=== PATIENT | male | born 1970 | race Caucasian/White ===

== ENCOUNTER 2020-02-21 07:09 | Emergency (ER) | payer MEDICAID, OTHER ==
[2020-02-21] MEDS ORDERED: Sodium Chloride 0.9% 1,000 ML IV SCH (07:15)
[2020-02-21] MEDS ORDERED: HYDROmorphone 0.5 MG/0.5 ML Syringe IVPUSH ONE (07:16)
[2020-02-21] MEDS ORDERED: Metoclopramide 10 MG/2 ML SDV IVPUSH ONE (07:16)
--- NOTE | 2020-02-21 07:22 | EDM.PDOC ---
ED HPI GENERAL MEDICAL PROBLEM - General Chief Complaint: Neuro Symptoms/Deficits Stated Complaint: [facility] Time Seen by Provider: 02/21/20 07:15 Source of Information: Reports: Patient, EMS History Limitations: Reports: No Limitations - History of Present Illness INITIAL COMMENTS - FREE TEXT/NARRATIVE: 49-year-old male brought to the ED per [facility] ambulance. They got a call to respond to an unresponsive man whom CPR was being done on by bystanders. Apparently he is staying in a hotel room. Paramedics indicate that he was unresponsive and blue in color. They were unable to establish an IV and therefore an IO device was placed in his right anterior tibia. Patient is a known type 2 diabetic controlled with oral meds and diet and they were unable to get initial blood sugar. He was given a third of an amp of D50 when the blood sugar recording came back at greater than 250. Subsequent blood sugar was 360. Therefore the full amp was not administered and he did not seem to respond to it either. There is some suggestion that he might of ODD on a narcotic and he was therefore given Narcan 2 mg IV and did respond to this by awakening. Apparently has had no nausea or vomiting. Patient is alert and oriented at the time of arrival in the ED complaining of severe pain at the site of the IO device in his right anterior tibia. It was removed. He states he got up around 0530 hrs. this morning and took his usual doses of medications. After this he does not remember anything else. There was no emesis on scene. No evidence that he bit his tongue or lost control of his bowel or bladder. He had a similar type episode about a month ago in [place]. Apparently he received 2 doses of Narcan at that time and responded to medication. Past records reveal that he has a history of opioid abuse but he denies using any opiates at this time. He denies any chest pain at this time. Denies any fever chills nausea or vomiting. Patient reports only change in medication last month was an increased dose of his labetalol for hypertension Onset: Today, Unknown/Unsure (For 530 as he states he got up for the day at that time.) Onset Date: 02/21/20 Duration: Minutes: Location: Reports: Generalized (Is found unresponsive blue in color with a pulse and CPR was stopped by paramedics.) Quality: Reports: Other (Patient's only pain is in his right anterior tib-fib at the site of intra-osseous device) Severity: Moderate Improves with: Reports: Other (Patient's cognition returned after Narcan 2 mg IV ) Worsens with: Reports: None Context: Reports: Other (Found unresponsive on the floor of a hotel room.). Denies: Activity, Exercise, Lifting, Sick Contact, Trauma Associated Symptoms: Reports: Confusion, Diaphoresis (He has no idea what happened to him after he took his meds at 0530 hrs. this morning.), Malaise, Weakness. Denies: Chest Pain, Cough, cough w sputum, Fever/Chills, Headaches, Loss of Appetite, Nausea/Vomiting, Rash, Seizure, Shortness of Breath, Syncope Treatments BMET: Reports: Other (see below) (Paramedics administered a third of an amp of D50 glucose. He also then received Narcan 2 mg IV.) Right Leg Pain Score (Numeric/FACES): 8 - Related Data Allergies Allergy/AdvReac Type Severity Reaction Status Date / Time codeine Allergy Rash Verified 02/21/20 07:50 Home Meds: Home Meds Fluticasone/Salmeterol [Advair 500-50] 1 puff INH BID #1 diskus 09/05/18 [Rx] amLODIPine Besylate [Amlodipine Besylate] 10 mg PO DAILY #30 tablet 09/05/18 [Rx ] metFORMIN HCl [Metformin HCl] 1,000 mg PO BID 12/18/18 [History] Labetalol HCl [Labetalol] 300 mg PO ASDIRECTED #90 tablet 02/21/20 [Rx] Labetalol HCl [Labetalol] 300 mg PO QAM 02/21/20 [History] Labetalol [Normodyne] 600 mg PO BEDTIME 02/21/20 [History] Multivitamin [Multiple Vitamins] 1 tab PO DAILY 02/21/20 [History] amLODIPine [Norvasc] 10 mg PO DAILY #30 tab 02/21/20 [Rx] lisinopriL [Lisinopril] 40 mg PO DAILY 02/21/20 [History] lisinopriL [Lisinopril] 40 mg PO DAILY #30 tablet 02/21/20 [Rx] metFORMIN [Glucophage] 1,000 mg PO BIDMEALS #60 tab 05/30/20 [Rx] Past Medical History HEENT History: Reports: None Cardiovascular History: Reports: Hypertension Respiratory History: Reports: None Gastrointestinal History: Reports: None Genitourinary History: Reports: Renal Calculus Musculoskeletal History: Reports: None Neurological History: Reports: None Psychiatric History: Reports: None Endocrine/Metabolic History: Reports: Other (See Below) Other Endocrine/Metabolic History: pre-diabetic Insulin Pump Model and Elementary Reading Tutor: None Hematologic History: Reports: None Immunologic History: Reports: None Oncologic (Cancer) History: Reports: None Dermatologic History: Reports: None - Infectious Disease History Infectious Disease History: Reports: None - Past Surgical History Head Surgeries/Procedures: Reports: None Other Cardiovascular Surgeries/Procedures: From previous hx Social & Family History - Family History Family Medical History: Unobtainable - Caffeine Use Caffeine Use: Reports: Tea - Living Situation & Occupation Living situation: Reports: Occupation: Unemployed ED ROS GENERAL - Review of Systems Review Of Systems: See Below Constitutional: Reports: Malaise. Denies: Fever, Chills, Decreased Appetite HEENT: Reports: No Symptoms Respiratory: Reports: No Symptoms Cardiovascular: Reports: Blood Pressure Problem Endocrine: Reports: Fatigue, High Glucose ( apparently not all that compliant with meds. ) GI/Abdominal: Reports: No Symptoms : Reports: Frequency Musculoskeletal: Reports: Back Pain, Other ( currently complaining of Rt anterior tibia pain at site of IO device. ) Skin: Reports: No Symptoms Neurological: Reports: Other (recurrent bouts of unresponsiveness felt to be related to opiod overdoses as he responds to Narcan. ) Psychiatric: Reports: Other (substance abuse. ) Hematologic/Lymphatic: Reports: No Symptoms Immunologic: Reports: No Symptoms ED EXAM, NEURO - Physical Exam Exam: See Below Exam Limited By: No Limitations General Appearance: Alert, Moderate Distress (in severe pain from IO devise Rt anterior proximal tibia. Device was removed as a peripheral IV has been established. ), Other (Temperature is 36.6. Heart rate was 95 and sinus respiratory of 16 with O2 sats of 97% on room air. BP initially was 138/99 came down to 119/81.) Eye Exam: Bilateral Eye: Normal Inspection, PERRL Throat/Mouth: Other (Tongue is very dry and coated with no signs of bite estrada.) Head Exam: Atraumatic ( Are dry and cracked.), Normocephalic, Other (No outward signs of head or facial trauma) Neck: Normal Inspection, Supple, Non-Tender, Full Range of Motion. No: Lymphadenopathy (L), Lymphadenopathy (R) Respiratory/Chest: No Respiratory Distress, Lungs Clear, Normal Breath Sounds, No Accessory Muscle Use, Chest Non-Tender Cardiovascular: Normal Peripheral Pulses, Regular Rate, Rhythm, No Edema, No Gallop, No Murmur, No Rub GI/Abdominal: Normal Bowel Sounds, Soft, Non-Tender, No Organomegaly, No Mass, Pelvis Stable, Distended (Atlee distended and tympanitic to percussion combined with some degree of aerophagia.). No: Guarding, Rigid, Rebound, Tender, Mass (Male) Exam: No Hernia Neurological: Alert, Normal Dorsiflexion, CN II-XII Intact, Normal Reflexes, No Motor/Sensory Deficits, Oriented x 3 Back Exam: Normal Inspection Extremities: Normal Inspection, Normal Range of Motion, No Pedal Edema, Other ( Intraosseous device anterior proximal right tib-fib. It was removed as it was causing a great deal of pain and distress for the patient.) Psychiatric: Anxious Skin Exam: Warm, Dry, Intact, Normal Color, No Rash EKG INTERPRETATION EKG Date: 02/21/20 Time: 07:38 Rhythm: NSR Rate (Beats/Min): 85 Hurricane: Normal P-Wave: Enlarged ST-T: Other (Diffuse early repolarization pattern) QT: Prolonged (Minimally prolonged) EKG Interpretation Comments: Borderline ECG Course - Vital Signs Last Recorded V/S: Last Vital Signs Temp 36.6 C 02/21/20 07:13 Pulse 95 02/21/20 07:13 Resp 16 02/21/20 07:13 BP 138/99 H 02/21/20 07:13 Pulse Ox 87 L 02/21/20 08:16 - Orders/Labs/Meds Orders: Active Orders 24 hr Category Date Time Status EKG Documentation Completion [RC] STAT Care 02/21/20 07:16 Active Oxygen Therapy [RC] ASDIRECTED Care 02/21/20 08:10 Active Sodium Chloride 0.9% [Normal Saline] 1,000 ml Med 02/21/20 07:15 Active IV ASDIRECTED Medication Orders Sodium Chloride (Normal Saline) 1,000 mls @ 150 mls/hr IV ASDIRECTED TY Last Admin: 05/30/20 07:28 Dose: 150 mls/hr Labs: Laboratory Tests 02/21/20 02/21/20 02/21/20 Range/Units 07:30 07:30 07:30 WBC 13.15 H (4.23-9.07) K/mm3 RBC 4.53 L (4.63-6.08) M/mm3 Hgb 13.3 L (13.7-17.5) gm/dl Hct 39.8 L (40.1-51.0) % MCV 87.9 (79.0-92.2) fl MCH 29.4 (25.7-32.2) pg MCHC 33.4 (32.2-35.5) g/dl RDW Std Deviation 40.9 (35.1-43.9) fL Plt Count 313 (163-337) K/mm3 MPV 10.9 (9.4-12.3) fl Neut % (Auto) 78.8 H (34.0-67.9) % Lymph % (Auto) 10.4 L (21.8-53.1) % Lander % (Auto) 7.9 (5.3-12.2) % Eos % (Auto) 2.2 (0.8-7.0) Baso % (Auto) 0.5 (0.1-1.2) % Neut # (Auto) 10.36 H (1.78-5.38) K/mm3 Lymph # (Auto) 1.37 (1.32-3.57) K/mm3 Lander # (Auto) 1.04 H (0.30-0.82) K/mm3 Eos # (Auto) 0.29 (0.04-0.54) K/mm3 Baso # (Auto) 0.06 (0.01-0.08) K/mm3 PT 10.0 (9.7-12.0) SECONDS INR 0.93 Sodium 134 L (136-145) mEq/L Potassium 3.9 (3.5-5.1) mEq/L Chloride 97 L (98-107) mEq/L Carbon Dioxide 26 (21-32) mEq/L Anion Gap 14.9 (5-15) BUN 23 H (7-18) mg/dL Creatinine 1.3 (0.7-1.3) mg/dL Est Cr Clr Drug Dosing 74.62 mL/min Estimated GFR (MDRD) 58 (>60) mL/min BUN/Creatinine Ratio 17.7 (14-18) Glucose 447 H (74-106) mg/dL Hemoglobin A1c (4.50-6.20) % Lactic Acid (0.4-2.0) mmol/L Calcium 9.2 (8.5-10.1) mg/dL Magnesium (1.8-2.4) mg/dl Total Bilirubin 0.5 (0.2-1.0) mg/dL AST 78 H (15-37) U/L ALT 79 H (16-63) U/L Alkaline Phosphatase 95 (46-116) U/L Troponin I < 0.017 (0.00-0.056) ng/mL C-Reactive Protein (<1.0) mg/dL NT-Pro-B Natriuret Pep (0-125) pg/mL Total Protein 7.6 (6.4-8.2) g/dl Albumin 3.7 (3.4-5.0) g/dl Globulin 3.9 gm/dL Albumin/Globulin Ratio 1.0 (1-2) Urine Color (Yellow) Urine Appearance (Clear) Urine pH (5.0-8.0) Ur Specific Victoria (1.005-1.030) Urine Protein (Negative) Urine Glucose (UA) (Negative) Urine Ketones (Negative) Urine Occult Blood (Negative) Urine Nitrite (Negative) Urine Bilirubin (Negative) Urine Urobilinogen (0.2-1.0) Ur Leukocyte Esterase (Negative) Urine RBC (0-5) /hpf Urine WBC (0-5) /hpf Ur Epithelial Cells (0-5) /hpf Urine Bacteria (FEW) /hpf Urine Mucus (FEW) /hpf Urine Opiates Screen (DDHPAU=037) Ur Buprenorphine Scrn (CUTOFF=10) Ur Oxycodone Screen (HMW8GI=383) Urine Methadone Screen (FAG2MT=382) Ur Propoxyphene Screen (SUVOVY=033) Ur Barbiturates Screen (NVKZLB=435) Ur Tricyclics Screen (GDHOLI=261) Ur Phencyclidine Scrn (CUTOFF=25) Ur Amphetamine Screen (XIQVOY=457) U Methamphetamines Scrn (LIUNLH=505) U Benzodiazepines Scrn (WQYMRR=158) U Cocaine Metab Screen (SUGJRN=579) U Marijuana (THC) Screen (CUTOFF=50) Ethyl Alcohol 0.00 (0.00) gm% Ketones (0.0-0.3) mM 02/21/20 02/21/20 02/21/20 Range/Units 07:30 07:30 07:30 WBC (4.23-9.07) K/mm3 RBC (4.63-6.08) M/mm3 Hgb (13.7-17.5) gm/dl Hct (40.1-51.0) % MCV (79.0-92.2) fl MCH (25.7-32.2) pg MCHC (32.2-35.5) g/dl RDW Std Deviation (35.1-43.9) fL Plt Count (163-337) K/mm3 MPV (9.4-12.3) fl Neut % (Auto) (34.0-67.9) % Lymph % (Auto) (21.8-53.1) % Lander % (Auto) (5.3-12.2) % Eos % (Auto) (0.8-7.0) Baso % (Auto) (0.1-1.2) % Neut # (Auto) (1.78-5.38) K/mm3 Lymph # (Auto) (1.32-3.57) K/mm3 Lander # (Auto) (0.30-0.82) K/mm3 Eos # (Auto) (0.04-0.54) K/mm3 Baso # (Auto) (0.01-0.08) K/mm3 PT (9.7-12.0) SECONDS INR Sodium (136-145) mEq/L Potassium (3.5-5.1) mEq/L Chloride (98-107) mEq/L Carbon Dioxide (21-32) mEq/L Anion Gap (5-15) BUN (7-18) mg/dL Creatinine (0.7-1.3) mg/dL Est Cr Clr Drug Dosing mL/min Estimated GFR (MDRD) (>60) mL/min BUN/Creatinine Ratio (14-18) Glucose (74-106) mg/dL Hemoglobin A1c (4.50-6.20) % Lactic Acid 1.3 (0.4-2.0) mmol/L Calcium (8.5-10.1) mg/dL Magnesium 2.0 (1.8-2.4) mg/dl Total Bilirubin (0.2-1.0) mg/dL AST (15-37) U/L ALT (16-63) U/L Alkaline Phosphatase (46-116) U/L Troponin I (0.00-0.056) ng/mL C-Reactive Protein 1.1 H* (<1.0) mg/dL NT-Pro-B Natriuret Pep (0-125) pg/mL Total Protein (6.4-8.2) g/dl Albumin (3.4-5.0) g/dl Globulin gm/dL Albumin/Globulin Ratio (1-2) Urine Color (Yellow) Urine Appearance (Clear) Urine pH (5.0-8.0) Ur Specific Victoria (1.005-1.030) Urine Protein (Negative) Urine Glucose (UA) (Negative) Urine Ketones (Negative) Urine Occult Blood (Negative) Urine Nitrite (Negative) Urine Bilirubin (Negative) Urine Urobilinogen (0.2-1.0) Ur Leukocyte Esterase (Negative) Urine RBC (0-5) /hpf Urine WBC (0-5) /hpf Ur Epithelial Cells (0-5) /hpf Urine Bacteria (FEW) /hpf Urine Mucus (FEW) /hpf Urine Opiates Screen Presumptive positive H (ELEAJP=997) Ur Buprenorphine Scrn Negative (CUTOFF=10) Ur Oxycodone Screen Negative (UCS9PU=646) Urine Methadone Screen Negative (UDB0RL=502) Ur Propoxyphene Screen Negative (XFWQHY=263) Ur Barbiturates Screen Negative (XNZMDZ=391) Ur Tricyclics Screen Negative (KBXGXW=459) Ur Phencyclidine Scrn Negative (CUTOFF=25) Ur Amphetamine Screen Negative (QOJLTT=659) U Methamphetamines Scrn Presumptive positive H (QJEGNC=198) U Benzodiazepines Scrn Negative (ZMTVCG=366) U Cocaine Metab Screen Negative (OCXAEQ=838) U Marijuana (THC) Screen Negative (CUTOFF=50) Ethyl Alcohol (0.00) gm% Ketones (0.0-0.3) mM 02/21/20 02/21/20 02/21/20 Range/Units 07:30 07:30 07:30 WBC (4.23-9.07) K/mm3 RBC (4.63-6.08) M/mm3 Hgb (13.7-17.5) gm/dl Hct (40.1-51.0) % MCV (79.0-92.2) fl MCH (25.7-32.2) pg MCHC (32.2-35.5) g/dl RDW Std Deviation (35.1-43.9) fL Plt Count (163-337) K/mm3 MPV (9.4-12.3) fl Neut % (Auto) (34.0-67.9) % Lymph % (Auto) (21.8-53.1) % Lander % (Auto) (5.3-12.2) % Eos % (Auto) (0.8-7.0) Baso % (Auto) (0.1-1.2) % Neut # (Auto) (1.78-5.38) K/mm3 Lymph # (Auto) (1.32-3.57) K/mm3 Lander # (Auto) (0.30-0.82) K/mm3 Eos # (Auto) (0.04-0.54) K/mm3 Baso # (Auto) (0.01-0.08) K/mm3 PT (9.7-12.0) SECONDS INR Sodium (136-145) mEq/L Potassium (3.5-5.1) mEq/L Chloride (98-107) mEq/L Carbon Dioxide (21-32) mEq/L Anion Gap (5-15) BUN (7-18) mg/dL Creatinine (0.7-1.3) mg/dL Est Cr Clr Drug Dosing mL/min Estimated GFR (MDRD) (>60) mL/min BUN/Creatinine Ratio (14-18) Glucose (74-106) mg/dL Hemoglobin A1c (4.50-6.20) % Lactic Acid (0.4-2.0) mmol/L Calcium (8.5-10.1) mg/dL Magnesium (1.8-2.4) mg/dl Total Bilirubin (0.2-1.0) mg/dL AST (15-37) U/L ALT (16-63) U/L Alkaline Phosphatase (46-116) U/L Troponin I (0.00-0.056) ng/mL C-Reactive Protein (<1.0) mg/dL NT-Pro-B Natriuret Pep 117 (0-125) pg/mL Total Protein (6.4-8.2) g/dl Albumin (3.4-5.0) g/dl Globulin gm/dL Albumin/Globulin Ratio (1-2) Urine Color Yellow (Yellow) Urine Appearance Clear (Clear) Urine pH 6.5 (5.0-8.0) Ur Specific Victoria 1.025 (1.005-1.030) Urine Protein 2+ H (Negative) Urine Glucose (UA) 2+ H (Negative) Urine Ketones Negative (Negative) Urine Occult Blood Negative (Negative) Urine Nitrite Negative (Negative) Urine Bilirubin Negative (Negative) Urine Urobilinogen 0.2 (0.2-1.0) Ur Leukocyte Esterase Negative (Negative) Urine RBC 0-5 (0-5) /hpf Urine WBC 0-5 (0-5) /hpf Ur Epithelial Cells 0-5 (0-5) /hpf Urine Bacteria Few (FEW) /hpf Urine Mucus Not seen (FEW) /hpf Urine Opiates Screen (JBPBER=546) Ur Buprenorphine Scrn (CUTOFF=10) Ur Oxycodone Screen (GWS6GY=626) Urine Methadone Screen (ICG4PM=027) Ur Propoxyphene Screen (RIVINH=362) Ur Barbiturates Screen (RMOTEC=139) Ur Tricyclics Screen (DDJBZW=448) Ur Phencyclidine Scrn (CUTOFF=25) Ur Amphetamine Screen (QXORHE=740) U Methamphetamines Scrn (EEYHVC=932) U Benzodiazepines Scrn (XEBKQY=081) U Cocaine Metab Screen (OHKUNQ=634) U Marijuana (THC) Screen (CUTOFF=50) Ethyl Alcohol (0.00) gm% Ketones 0.31 (0.0-0.3) mM 05/30/20 Range/Units 07:30 WBC (4.23-9.07) K/mm3 RBC (4.63-6.08) M/mm3 Hgb (13.7-17.5) gm/dl Hct (40.1-51.0) % MCV (79.0-92.2) fl MCH (25.7-32.2) pg MCHC (32.2-35.5) g/dl RDW Std Deviation (35.1-43.9) fL Plt Count (163-337) K/mm3 MPV (9.4-12.3) fl Neut % (Auto) (34.0-67.9) % Lymph % (Auto) (21.8-53.1) % Lander % (Auto) (5.3-12.2) % Eos % (Auto) (0.8-7.0) Baso % (Auto) (0.1-1.2) % Neut # (Auto) (1.78-5.38) K/mm3 Lymph # (Auto) (1.32-3.57) K/mm3 Lander # (Auto) (0.30-0.82) K/mm3 Eos # (Auto) (0.04-0.54) K/mm3 Baso # (Auto) (0.01-0.08) K/mm3 PT (9.7-12.0) SECONDS INR Sodium (136-145) mEq/L Potassium (3.5-5.1) mEq/L Chloride (98-107) mEq/L Carbon Dioxide (21-32) mEq/L Anion Gap (5-15) BUN (7-18) mg/dL Creatinine (0.7-1.3) mg/dL Est Cr Clr Drug Dosing mL/min Estimated GFR (MDRD) (>60) mL/min BUN/Creatinine Ratio (14-18) Glucose (74-106) mg/dL Hemoglobin A1c 11.80 H (4.50-6.20) % Lactic Acid (0.4-2.0) mmol/L Calcium (8.5-10.1) mg/dL Magnesium (1.8-2.4) mg/dl Total Bilirubin (0.2-1.0) mg/dL AST (15-37) U/L ALT (16-63) U/L Alkaline Phosphatase (46-116) U/L Troponin I (0.00-0.056) ng/mL C-Reactive Protein (<1.0) mg/dL NT-Pro-B Natriuret Pep (0-125) pg/mL Total Protein (6.4-8.2) g/dl Albumin (3.4-5.0) g/dl Globulin gm/dL Albumin/Globulin Ratio (1-2) Urine Color (Yellow) Urine Appearance (Clear) Urine pH (5.0-8.0) Ur Specific Victoria (1.005-1.030) Urine Protein (Negative) Urine Glucose (UA) (Negative) Urine Ketones (Negative) Urine Occult Blood (Negative) Urine Nitrite (Negative) Urine Bilirubin (Negative) Urine Urobilinogen (0.2-1.0) Ur Leukocyte Esterase (Negative) Urine RBC (0-5) /hpf Urine WBC (0-5) /hpf Ur Epithelial Cells (0-5) /hpf Urine Bacteria (FEW) /hpf Urine Mucus (FEW) /hpf Urine Opiates Screen (YYWAHQ=958) Ur Buprenorphine Scrn (CUTOFF=10) Ur Oxycodone Screen (RUY6TQ=332) Urine Methadone Screen (XOD5LJ=529) Ur Propoxyphene Screen (RXJCRI=167) Ur Barbiturates Screen (CUTEVI=323) Ur Tricyclics Screen (COJYVF=655) Ur Phencyclidine Scrn (CUTOFF=25) Ur Amphetamine Screen (GVVOEN=665) U Methamphetamines Scrn (ETECBK=877) U Benzodiazepines Scrn (DOXNCY=413) U Cocaine Metab Screen (GHOZCA=380) U Marijuana (THC) Screen (CUTOFF=50) Ethyl Alcohol (0.00) gm% Ketones (0.0-0.3) mM Meds: Medications Generic Name Dose Route Start Last Admin Trade Name Freq PRN Reason Stop Dose Admin Sodium Chloride 1,000 mls @ 150 mls/hr 02/21/20 07:15 02/21/20 07:28 Normal Saline IV 150 mls/hr ASDIRECTED TY Administration Discontinued Medications Generic Name Dose Route Start Last Admin Trade Name Freq PRN Reason Stop Dose Admin Hydromorphone HCl 0.5 mg 02/21/20 07:16 02/21/20 07:37 Dilaudid IVPUSH 02/21/20 07:17 0.5 mg ONETIME ONE Administration Cefazolin Sodium/Dextrose 1 gm 50 mls @ 100 mls/hr 02/21/20 08:15 02/21/20 08 :44 / Premix IV 02/21/20 08:44 100 mls/hr ONETIME ONE Administration Insulin Human Regular 8 unit 02/21/20 07:57 02/21/20 08:13 Humulin R SUBCUT 02/21/20 07:58 8 unit ONETIME ONE Administration Insulin Human Regular 8 unit 02/21/20 09:02 02/21/20 09:25 Humulin R SUBCUT 02/21/20 09:03 8 unit ONETIME ONE Administration Metoclopramide HCl 10 mg 02/21/20 07:16 02/21/20 07:36 Reglan IVPUSH 02/21/20 07:17 10 mg ONETIME ONE Administration - Radiology Interpretation Free Text/Narrative:: 49-year-old male brought to the ED by [facility] ambulance after he was found unresponsive on a hotel room floor. Apparently was staying with friends or coworkers. He was found to be blue and they did not feel a pulse and CPR was started by them. Paramedics were summoned and identified that he did have a pulse CPR was stopped. He was unresponsive and bluish in discoloration. There is a history of him being diabetic so they felt he might have suffered a hypoglycemic reaction. A peripheral IV was not yet established and therefore an IO device was placed in his right anterior tibia. He was given a third of an amp of D50 when his blood sugar came back at greater than 260. Therefore the rest of the amp of D50 was discontinued. He was not responding to this medication either. He was therefore given Narcan 2 mg IV and he did respond to this dose by awakening over approximately a minute. No vomiting ensued. Eating at his old notes he had a similar event in [place] a month ago and apparently responded to 2 doses of Narcan according to his . He has a history of opioid abuse although he denies taking any opioids this morning. There is no clinical evidence of having had a seizure. Neurologically he is intact at this time. Plan IV normal saline at 150 mils per hour. Routine labs including lactic acid and ketones will be obtained. Monitoring of course will be done. He denies any chest pain from the CPR. Portable chest x-ray and ECG to be done. Urinalysis and urine drug screen to be done. And Dilaudid 0.5 mg IV and Toradol 30 mg IV for pain in his right leg. Reglan 10 mg IVP as well. - Re-Assessments/Exams Free Text/Narrative Re-Assessment/Exam: 02/21/20 07:57 test x-ray done portably reveals no abnormalities. Cardiac silhouette is within normal limits. Lungs are clear without pneumothorax. No obvious fractured ribs. Bedside blood sugars reported to be greater than 400. He will therefore be given 8 units of regular insulin subcutaneously. 02/21/20 08:05 Hematology reveals a slightly elevated white count at 13.15. Auto differential shows 78.8% neutrophils. Hemoglobin is 13.3 with hematocrit of 39.8. Platelet count normal at 313,000. Plan I am going to give him Ancef 1 g IV as he is significantly diabetic and will provide Ancef 1 g for coverage of skin and bone prolonged prophylaxis after having an IO started in his anterior tibia. 02/21/20 08:49 PT is 10.0 with an INR of 0.93. Sodium slightly low at 134 with a potassium of 3.9. Chloride is 97 with a bicarb of 26. Anion gap is 14.9 BUN is slightly elevated at 23 with a creatinine of 1.3. GFR is 58. Glucose was elevated at 447. Hemoglobin A1c is 11.80 indicating he has not controlled as far as his diabetes goes. Apparently he has been advised that he requires insulin and has refused to take it because of finances. Lactic acid 1.3. Calcium 9.2. Magnesium 2.0. Total bilirubin 0.5 AST mildly elevated at 78 ALT mildly elevated at 79. Alk phos today is 95. Troponin I is less than 0.017. C -reactive protein 1.1. BNP 117. Total protein is 7.6. Albumin fraction 3.7. Urinalysis shows 2+ proteinuria and 2+ glucosuria. No signs of infection. Urine drug screen is presumptively positive for opioids and methamphetamines. Serum ketones minimally elevated at 0.31. Blood alcohol was 0.00. 02/21/20 09:03 Discussed the findings with the patient and his . His diabetes is way out of control and he does need insulin therapy. He reports that he has a prescription for insulin but unable to afford it was $1200 for 8 pens. He is actively working but does not have insurance at this time. I am going to give him another 8 units of Humulin R insulin subcutaneously for blood sugar control. He reports he thinks his weight is stable. But he has severe polyuria and polydipsia. He is not ketotic. His urine drug screen is positive for methamphetamines and opioids and this is the reason he responded to Narcan this morning. He admits that he likes to libertarian. Departure - Departure Time of Disposition: 09:05 Disposition: Home, Self-Care 01 Condition: Poor Clinical Impression: Methamphetamine use, Dehydration Uncontrolled type 2 diabetes mellitus Qualifiers: Glycemic state: with hyperglycemia Qualified Code(s): E11.65 - Type 2 diabetes mellitus with hyperglycemia Opioid overdose Qualifiers: Encounter type: initial encounter Injury intent: accidental or unintentional Qualified Code(s): T40.2X1A - Poisoning by other opioids, accidental ( unintentional), initial encounter - Discharge Information *PRESCRIPTION DRUG MONITORING PROGRAM REVIEWED*: Not Applicable *COPY OF PRESCRIPTION DRUG MONITORING REPORT IN PATIENT KEELY: Not Applicable Prescriptions: amLODIPine [Norvasc] 10 mg PO DAILY #30 tab Labetalol HCl [Labetalol] 300 mg PO ASDIRECTED #90 tablet lisinopriL [Lisinopril] 40 mg PO DAILY #30 tablet metFORMIN [Glucophage] 1,000 mg PO BIDMEALS #60 tab Instructions: Type 2 Diabetes Mellitus, Diagnosis, Adult, Tips for Eating Away From Home If You Have Diabetes Referrals: PCP,None [Primary Care Provider] - Forms: ED Department Discharge Additional Instructions: Evaluation in the emergency room this morning after you were found unresponsive on hotel room floor this morning. You were bluish in color and not breathing adequately. CPR was started by family members. When the paramedics arrived they found that you did have a pulse but were not breathing very well. With a history of diabetes they were concerned about a insulin reaction and hypoglycemia or low blood sugar as a cause of your altered mental status. They gave you a third of an amp of D50 percent dextrose which is a form of sugar. Her blood was checked it was recognized that your sugar was over 260 and therefore no further sugar was administered intravenously. You were given Narcan 2 mg IV which restored your normal cognitive function and breathing ability on your own. This is an antidote for opioid overdose. Your blood sugars today confirmed uncontrolled type 2 diabetes with a glycosylated protein of 11.8 and it should be 7 or less. You are going to need insulin to bring your blood sugars under control but finances are a problem at this point time. Therefore continue metformin 1000 mg twice daily for blood sugar control. Urine drug screen was positive for opioids and methamphetamines. May suggest refrain from use of recreational drugs as they have the potential to easily be overdosed accidentally and result in . If you have a desire to stop using recreational drugs and needed assistance please call [facility] here in [place]. The number is [phone]. Because of the intraosseous IV device placed in your right anterior leg you were given Ancef 1 g IV in the ER as preventative medicine to prevent any infection in this area. Please Place antibiotic ointment such as bacitracin or Polysporin on this wound and cover with a bandage daily for the next 3 days. With personal care physician as soon as able and when finances allow to start insulin therapy for blood sugar control. I did refill your medications at your request amlodipine 10 mg once daily for blood pressure control. Metformin 1 g twice daily for blood sugar control. Labetalol 300 mg in the morning and 600 mg in the bedtime dose for blood pressure control. Lisinopril 40 mg once daily in the morning for blood pressure control. The hydrochlorothiazide or diuretic tablet should be discontinued as you are already dehydrated and this medication is making things worse. It also is a very minimal blood pressure control medication and you will not miss it. Sepsis Event Note - Focused Exam Vital Signs: Vital Signs Temp Pulse Resp BP Pulse Ox Pulse Ox 02/21/20 08:16 87 L 02/21/20 07:13 36.6 C 95 16 138/99 H 97 Date Exam was Performed: 02/21/20 Time Exam was Performed: 09:33 - My Orders Last 24 Hours: My Active Orders 02/21/20 07:15 Sodium Chloride 0.9% [Normal Saline] 1,000 ml IV ASDIRECTED 02/21/20 07:16 EKG Documentation Completion [RC] STAT 02/21/20 08:10 Oxygen Therapy [RC] ASDIRECTED - Assessment/Plan Last 24 Hours: My Active Orders 02/21/20 07:15 Sodium Chloride 0.9% [Normal Saline] 1,000 ml IV ASDIRECTED 02/21/20 07:16 EKG Documentation Completion [RC] STAT 02/21/20 08:10 Oxygen Therapy [RC] ASDIRECTED
--- NOTE | 2020-02-21 07:36 | CR ---
Chest: Portable view of the chest was obtained. Comparison: No prior chest imaging is available. Heart size and mediastinum are normal. Lungs are clear with no acute parenchymal change. Bony structures are grossly intact. Impression: 1. Nothing acute is seen on portable chest x-ray. Diagnostic code #1 This report was dictated in MDT
[2020-02-21] MEDS ORDERED: Insulin Regular, Human 100 Units/ML 3 ML Vial SUBCUT ONE ×2 (07:57→09:02)
[2020-02-21] MEDS ORDERED: ceFAZolin 1 GM in Premix Bag 1 BAG IV ONE (08:15)
[2020-02-21 08:30] LABS: HEMOGLOBIN A1C 11.8 % (4.50-6.20)
[2020-02-21 09:54] VITALS: BP 123/74; PULSE 78
== END 2020-02-21 09:45 | disposition home or self-care (01) ==
LOC: JD.ED 07:09
DX: T40.2X2A Poisoning by other opioids, intentional self-harm, initial encounter (principal); E86.0 Dehydration; F15.90 Other stimulant use, unspecified, uncomplicated; E11.65 Type 2 diabetes mellitus with hyperglycemia; Z79.84 Long term (current) use of oral hypoglycemic drugs; Z79.899 Other long term (current) drug therapy; Z88.5 Allergy status to narcotic agent
CPT/HCPCS: 36415; 71045; 80053; 80306; 80307; 81001; 82009; 83036; 83605; 83735; 83880; 84484; 85025; 85610; 86140; 93005; 96361; 96365; 96375; 99285; J0690; J1170; J1815; J2765; J7030; 93010